=== PATIENT | female | born 1990 | race American Indian/Alaskan Native ===

== ENCOUNTER 2017-02-24 08:46 | Emergency (ER) | payer SELFPAY ==
[2017-02-24] MEDS ORDERED: TORADOL IM ONE (12:23)
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
[2017-02-24 14:07] VITALS: BP 113/75
== END 2017-02-24 13:36 | disposition home or self-care (01) ==
LOC: ED 08:46
DX: K04.7 Periapical abscess without sinus (principal); F17.210 Nicotine dependence, cigarettes, uncomplicated; F14.10 Cocaine abuse, uncomplicated
CPT/HCPCS: 81025; 96372; 99283; J1885

== ENCOUNTER 2017-04-01 10:38 | Emergency (ER) | payer SELFPAY | END 2017-04-01 14:35 | disposition left against medical advice (07) | LOC: ED 10:38 | DX: N93.9 Abnormal uterine and vaginal bleeding, unspecified (principal); Z53.21 Procedure and treatment not carried out due to patient leaving prior to being seen by health care provider ==

== ENCOUNTER 2017-11-25 18:56 | Emergency (ER) | payer SELFPAY | END 2017-11-25 18:57 | disposition left against medical advice (07) | LOC: ED 18:56 | DX: T74.21XA Adult sexual abuse, confirmed, initial encounter (principal); Z53.21 Procedure and treatment not carried out due to patient leaving prior to being seen by health care provider ==

== ENCOUNTER 2021-09-27 22:52 | Emergency (ER) | payer SELFPAY ==
[2021-09-27 23:25] VITALS: BP 130/70
[2021-09-28 01:43] LABS: Bilirubin,Urine NEG (Negative); Blood,Urine NEG (Negative); Color,Urine Yellow (Yellow); Mucus,Urine FEW /HPF; Urobilinogen,Urine < 2.0 mg/dL (<2.0)
== END 2021-09-28 05:07 | disposition left against medical advice (07) ==
LOC: ED 22:52
DX: R10.9 Unspecified abdominal pain (principal); Z53.21 Procedure and treatment not carried out due to patient leaving prior to being seen by health care provider
CPT/HCPCS: 81001; 87086